=== PATIENT | female | born 1960 | race Caucasian/White ===

== ENCOUNTER → 2018-10-25 | Outpatient (CLI) | payer OTHER ==
[~2018-10-25] MED LIST: ALPR0.254 PO; ATOR10TA PO; HYDR25TA6 PO; LOSA100T14 PO
== END | disposition home or self-care (01) ==
LOC: CFH 10:20
PROVIDERS: ATTEND Family Medicine
DX: Z12.31 Encounter for screening mammogram for malignant neoplasm of breast (principal)
CPT/HCPCS: 77067

== ENCOUNTER 2018-12-08 11:03 | Emergency (ER) | payer OTHER ==
[~2018-12-08] VITALS: Ht 160 cm; Wt 90.1 kg
[2018-12-08 11:12] VITALS: BP 148/94
[2018-12-08] MEDS ORDERED: AMOXICILLIN/CLAV 875-125MG TABLET PO ONE (11:30)
[2018-12-08] MEDS ORDERED: IBUPROFEN 200 MG TABLET PO ONE (11:30)
[2018-12-08] MEDS ORDERED: IBUPROFEN 200 MG TABLET ONE (11:46)
== END 2018-12-08 12:56 | disposition home or self-care (01) ==
LOC: ED 12:53
DX: S61.552A Open bite of left wrist, initial encounter (principal); S61.551A Open bite of right wrist, initial encounter; J44.9 Chronic obstructive pulmonary disease, unspecified; I10 Essential (primary) hypertension; W55.01XA Bitten by cat, initial encounter; Y93.9 Activity, unspecified; Y92.009 Unspecified place in unspecified non-institutional (private) residence as the place of occurrence of the external cause; Y99.8 Other external cause status
CPT/HCPCS: 99283

== ENCOUNTER 2020-09-01 01:26 | Emergency (ER) | payer SELFPAY ==
[~2020-09-01] VITALS: Ht 152.4 cm; Wt 101.9 kg
[2020-09-01 02:03] LABS: MICROSCOPIC AUTO
[2020-09-01 02:07] LABS: BASOPHILS % (AUTO) 1 % (0-1); EOSINOPHILS % (AUTO) 2 % (1-7); LYMPHOCYTES % (AUTO) 37 % (22-44); MEAN CORPUSCULAR HEMOGLOBIN 32.7 pg (27.0-34.8); MEAN CORPUSCULAR HGB CONC 34.4 g/dL (32.4-35.8); MEAN PLATELET VOLUME 7.3 fL (7.4-10.4); MONOCYTES % (AUTO) 7 % (2-9); NEUTROPHILS % (AUTO) 54 % (42-75); PLATELET COUNT 210 x10^3/uL (130-400); RED BLOOD COUNT 4.33 x10^6/uL (3.82-5.3)
[2020-09-01 02:10] LABS: MD NO
[2020-09-01 02:18] LABS: ANION GAP 7 mmol/L (5-15); CALCIUM 9.2 mg/dL (8.5-10.1); CHLORIDE 110 mmol/L (98-107); CREATININE 0.92 mg/dL (0.55-1.02)
--- NOTE | 2020-09-01 03:42 | NUR ---
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
[2020-09-01] MEDS ORDERED: ONDANSETRON 2MG/ML, 2ML ONE (04:16)
[2020-09-01] MEDS ORDERED: MORPHINE SULFATE 4 MG/ML, 1ML ONE (04:16)
[2020-09-01] MEDS ORDERED: ONDANSETRON 2MG/ML, 2ML IVPush ONE (04:30)
[2020-09-01] MEDS ORDERED: MORPHINE SULFATE 4 MG/ML, 1ML IVPush PRN (04:30)
--- NOTE | 2020-09-01 04:56 | NUR ---
Pt back from CT, A&O x 3. RA sats to 84%, 2L NC placed with SPO2 up to 97. Pt with no resp distress. Family at bedside.
[2020-09-01] MEDS ORDERED: OMNIPAQUE 350 MG/ML, 100ML BOTTLE ONE (05:59)
[2020-09-01 06:03] VITALS: BP 124/66
--- NOTE | 2020-09-01 06:03 | NUR ---
PT AWAKE AND ALERT, AND IN NO PAIN AT THIS TIME AFTER BEING MEDICATED. F/U AND D/C INSTRUCTIONS GIVEN TO PT AND SHE V/U. PIV D/C'D FROM LEFT HAND. CATH INTACT
== END 2020-09-01 06:07 | disposition home or self-care (01) ==
LOC: ED 04:14
DX: S39.011A Strain of muscle, fascia and tendon of abdomen, initial encounter (principal); R10.31 Right lower quadrant pain; I10 Essential (primary) hypertension; J44.9 Chronic obstructive pulmonary disease, unspecified; Z98.51 Tubal ligation status; Z87.891 Personal history of nicotine dependence; X58.XXXA Exposure to other specified factors, initial encounter; Y93.89 Activity, other specified; Y92.89 Other specified places as the place of occurrence of the external cause; Y99.8 Other external cause status
CPT/HCPCS: 36415; 74177; 80048; 81001; 85025; 96374; 96375; 99285; J2270; J2405; Q9967